=== PATIENT | female | born 1940 | race African-American/Black ===

== ENCOUNTER 2019-09-04 13:02 | Inpatient (IN) ==
[2019-09-04] MEDS ORDERED: SODIUM CHLORIDE 0.9% 500 ML IV STA ×2 (13:51→15:28)
[2019-09-04 14:03] LABS: Basophils % 0.2 % (0.0-0.8); Hematocrit 32.4 VOL% (35.7-47.0); Hemoglobin 10.1 GM/DL (12.0-16.0); Immature Granulocytes % 1.1 %; Immature Granulocytes Absolute 0.14 #; Lymphocytes # 0.6 10*3/uL (1.4-4.0); Lymphocytes % 4.4 % (21.3-54.2); Mean Corpuscular HGB Conc 31.2 GM/DL (32-36); Mean Corpuscular Volume 102.2 FL (87-102); Mean Platelet Volume 11.7 FL (9.6-12.0); Monocytes % 10.6 % (1.7-12.7); Neutrophils % 83.7 % (38.7-73.9); Platelet Count 130 T/CUMM (130-400); Red Blood Count 3.17 MC/CUMM (3.8-5.5); Red Cell Distribution Width 14.7 % (9.3-17.3); White Blood Count 12.8 T/CUMM (4-12)
[2019-09-04 14:22] LABS: Albumin 2.2 G/DL (3.4-5.0); Bilirubin,Total 0.9 MG/DL (0.2-1.0); Calcium 9.1 MG/DL (8.5-10.1); Osmolality,Calculated 289.1 MOS/KG (273-304); Thyroid Stimulating Hormone 0.007 uIU/ml (0.358-3.74)
[2019-09-04 14:32] LABS: Apearance,Urine Turbid (Clear); Urine Color Yellow (Yellow); Urine Specific Gravity 1.005 (1.001-1.035)
[2019-09-04 14:33] LABS: Glucose,Urine (UA) Negative (Negative); Ketones,Urine 25 mg/dL (Negative); Protein,Urine 2+ MG/DL
[2019-09-04 14:34] LABS: Bilirubin,Urine Negative (Negative); Nitrite,Urine Negative (Negative)
[2019-09-04 14:35] LABS: Blood, Urine Trace mg/dL (Negative); RBC,Urine Rare /HPF (0-4); Squamous Epithelial Cell,Urine Many /HPF (0-10); Urine Urobilinogen < 2.0 EU/DL (0.2-1.0); WBC,Urine TNTC /HPF (0-6)
[2019-09-04 14:36] LABS: Bacteria,Urine Many /HPF (Few); Mucus,Urine Slight /LPF (Occasional); Sperm,Urine None Seen /HPF (Negative); Trichomonas,Urine None Seen /HPF (<1)
[2019-09-04] MEDS ORDERED: ALBUTEROL 1.25 MG/3 ML NEB RESP TX STA (14:54)
[2019-09-04] MEDS ORDERED: VANCOMYCIN INJ 1,000 MG in SODIUM CHLORIDE 0.9% 250 ML IV STA (14:55)
[2019-09-04] MEDS ORDERED: cefTRIAXone 1,000 MG in SODIUM CHLORIDE 0.9% 100 ML IV STA (14:56)
[2019-09-04 15:30] LABS: Band Neutrophils 1 % (0-10); Lymphocytes 8 % (20-55); Metamyelocytes 1 %; Segmented Neutrophils 81 % (50-85); Total Cells Counted 100
[2019-09-04 15:31] LABS: Anisocytosis 1+; Hypochromasia 2+; Macrocytosis 2+; Platelet Estimate Adequate
[2019-09-04 15:32] LABS: Polychromasia 1+
[2019-09-04 15:33] LABS: Spherocytes Few; Toxic Granulation 1+
[2019-09-04] MEDS ORDERED: ONDANSETRON 4 MG/2 ML VIAL IV PRN (15:35)
[2019-09-04] MEDS ORDERED: ACETAMINOPHEN 325 MG TABLET PO PRN (15:35)
[2019-09-04] MEDS ORDERED: ALBUTEROL 2.5 MG/3 ML NEB RESP TX PRN (15:35)
[2019-09-04] MEDS ORDERED: BISACODYL 5 MG TABLET PO PRN (15:35)
[2019-09-04] MEDS ORDERED: methylPREDNISolone SOD SUC 125 MG/2 ML VIAL IV STA (15:38)
[2019-09-04] MEDS ORDERED: PROPRANOLOL 1 MG/1 ML VIAL IV ONE (15:43)
[2019-09-04] MEDS ORDERED: AZITHROMYCIN INJ 500 MG in SODIUM CHLORIDE 0.9% 250 ML IV SCH (16:00)
[2019-09-04] MEDS ORDERED: cefTRIAXone 1,000 MG in SODIUM CHLORIDE 0.9% 100 ML IV SCH (16:00)
[2019-09-04 16:08] LABS: Free T4 (Free Thyroxine) 1.51 NG/DL (0.76-1.46)
[2019-09-04 16:11] LABS: PT Patient Result 179.3 SECS (9.6-12.2)
[2019-09-04 16:15] LABS: INR 16.9
[2019-09-04] MEDS ORDERED: PHYTONADIONE INJ 10 MG in SODIUM CHLORIDE 0.9% 50 ML IV ONE (16:27)
[2019-09-04] MEDS ORDERED: NOREPINEPHRINE 8 MG in SODIUM CHLORIDE 0.9% 242 ML IV PRN (18:18)
[2019-09-04] MEDS ORDERED: NOREPINEPHRINE 4 MG/4 ML VIAL IV ONE (18:20)
[2019-09-04] MEDS ORDERED: METOPROLOL TARTRATE 5 MG/5 ML VIAL IV ONE ×3 (18:22→20:06)
[2019-09-04] MEDS: FAMOTIDINE 20 MG/2 ML VIAL IV SCH (18:37)
[2019-09-04] MEDS: PIPERACILLIN/TAZOBACTAM 3,375 MG in SODIUM CHLORIDE 0.9% 100 ML IV SCH (18:39)
[2019-09-04] MEDS: methylPREDNISolone SOD SUC 125 MG/2 ML VIAL IV SCH ×2 (18:39→23:31)
[2019-09-04] MEDS: PROPRANOLOL 1 MG/1 ML VIAL IV SCH ×2 (19:28→23:31)
[2019-09-04] MEDS ORDERED: VERAPAMIL 5 MG/2 ML VIAL IV ONE (20:09)
[2019-09-04] MEDS ORDERED: SODIUM CHLORIDE 0.9% 1,000 ML IV PRN (20:28)
[2019-09-04] MEDS: propylthiouraciL 50 MG TABLET PO SCH (20:48)
[2019-09-04] MEDS ORDERED: METOPROLOL TARTRATE 25 MG TABLET PO SCH (21:00)
[2019-09-04] MEDS: VERAPAMIL 5 MG/2 ML VIAL IV PRN (23:00)
[2019-09-05] MEDS: PROPRANOLOL 1 MG/1 ML VIAL IV SCH ×7 (02:37→23:46)
[2019-09-05] MEDS: VERAPAMIL 5 MG/2 ML VIAL IV PRN ×2 (03:17→03:20)
[2019-09-05] MEDS: PIPERACILLIN/TAZOBACTAM 3,375 MG in SODIUM CHLORIDE 0.9% 100 ML IV SCH ×2 (04:54→17:05)
[2019-09-05 05:29] LABS: Basophils % 0.2 % (0.0-0.8); Hemoglobin 7.8 GM/DL (12.0-16.0); Immature Granulocytes % 0.8 %; Immature Granulocytes Absolute 0.08 #; Lymphocytes # 0.5 10*3/uL (1.4-4.0); Lymphocytes % 5.4 % (21.3-54.2); Mean Corpuscular HGB Conc 31.2 GM/DL (32-36); Mean Corpuscular Volume 101.2 FL (87-102); Mean Platelet Volume 11.8 FL (9.6-12.0); Monocytes % 5.8 % (1.7-12.7); Neutrophils % 87.8 % (38.7-73.9); Platelet Count 123 T/CUMM (130-400); Red Blood Count 2.47 MC/CUMM (3.8-5.5); White Blood Count 9.9 T/CUMM (4-12)
[2019-09-05 05:57] LABS: PT Patient Result 21.4 SECS (9.6-12.2)
[2019-09-05 06:08] LABS: Albumin 2.2 G/DL (3.4-5.0); Band Neutrophils 2 % (0-10); Bilirubin,Total 1.3 MG/DL (0.2-1.0); Hypochromasia 1+; Lymphocytes 6 % (20-55); Osmolality,Calculated 304.4 MOS/KG (273-304); Platelet Estimate Normal; Segmented Neutrophils 87 % (50-85); Total Cells Counted 100; Total Protein 6.4 G/DL (6.4-8.3)
[2019-09-05 06:29] LABS: Folate 19.7 NG/ML (5.4-24.0); Vitamin B12 > 2000 PG/ML (211-911)
[2019-09-05] MEDS ORDERED: DILTIAZEM 50 MG/10 ML VIAL IV ONE (06:45)
[2019-09-05 07:11] LABS: Hepatitis B Core IgM Quant < 0.05 Index; Hepatitis B Surface Ag Quant < 0.10 Index; Hepatitis B Surface Ag Result Negative (Negative); Hepatitis C Virus Ab Quant 0.15 Index; Hepatitis C Virus Ab Result Negative (Negative)
[2019-09-05] MEDS: dilTIAZem Drip 125 MG/125 ML PREMIX IV SCH (08:32)
[2019-09-05] MEDS ORDERED: EPOETIN ALFA 2,000 UNIT/1 ML VIAL IV PRN (10:29)
[2019-09-05] MEDS ORDERED: VANCOMYCIN INJ 500 MG in SODIUM CHLORIDE 0.9% 100 ML IV PRN (10:55)
[2019-09-05] MEDS: propylthiouraciL 50 MG TABLET PO SCH ×3 (11:21→20:34)
[2019-09-05] MEDS: ATORVASTATIN 40 MG TABLET PO SCH (11:21)
[2019-09-05] MEDS: methylPREDNISolone SOD SUC 125 MG/2 ML VIAL IV SCH ×3 (11:21→23:54)
[2019-09-05] MEDS: PANTOPRAZOLE 40 MG TABLET PO SCH (11:21)
[2019-09-05] MEDS: METOPROLOL TARTRATE 50 MG TABLET PO SCH ×2 (11:21→21:46)
[2019-09-05] MEDS ORDERED: VANCOMYCIN INJ 1,500 MG in SODIUM CHLORIDE 0.9% 500 ML IV ONE (14:00)
[2019-09-05] MEDS: FAMOTIDINE 20 MG/2 ML VIAL IV SCH (16:02)
[2019-09-05] MEDS: OXACILLIN 2,000 MG in SODIUM CHLORIDE 0.9% 100 ML IV SCH ×3 (16:02→23:54)
[2019-09-05] MEDS: WARFARIN 5 MG TABLET PO SCH (19:00)
[2019-09-06] MEDS: PROPRANOLOL 1 MG/1 ML VIAL IV SCH ×2 (03:27→08:00)
[2019-09-06] MEDS: OXACILLIN 2,000 MG in SODIUM CHLORIDE 0.9% 100 ML IV SCH ×5 (03:44→22:02)
[2019-09-06] MEDS: PIPERACILLIN/TAZOBACTAM 3,375 MG in SODIUM CHLORIDE 0.9% 100 ML IV SCH (03:44)
[2019-09-06 04:55] LABS: Basophils % 0.2 % (0.0-0.8); Hematocrit 23.8 VOL% (35.7-47.0); Hemoglobin 7.8 GM/DL (12.0-16.0); Immature Granulocytes % 1.4 %; Immature Granulocytes Absolute 0.14 #; Lymphocytes # 0.5 10*3/uL (1.4-4.0); Lymphocytes % 4.6 % (21.3-54.2); Mean Corpuscular HGB Conc 32.8 GM/DL (32-36); Mean Corpuscular Volume 97.5 FL (87-102); Mean Platelet Volume 11.8 FL (9.6-12.0); Monocytes % 4.9 % (1.7-12.7); Neutrophils % 88.9 % (38.7-73.9); Platelet Count 123 T/CUMM (130-400); Red Blood Count 2.44 MC/CUMM (3.8-5.5); White Blood Count 9.8 T/CUMM (4-12)
[2019-09-06 04:59] LABS: INR 1.5; PT Patient Result 16.3 SECS (9.6-12.2)
[2019-09-06 05:31] LABS: Lymphocytes 3 % (20-55); Segmented Neutrophils 93 % (50-85); Total Cells Counted 100
[2019-09-06 05:32] LABS: Hypochromasia 1+; Platelet Estimate Adequate; Reactive Lymphocytes Few; Target Cells Few
[2019-09-06 05:36] LABS: Calcium 8.3 MG/DL (8.5-10.1); Osmolality,Calculated 299.4 MOS/KG (273-304)
[2019-09-06] MEDS: dilTIAZem Drip 125 MG/125 ML PREMIX IV SCH ×2 (07:46→21:36)
[2019-09-06] MEDS: METOPROLOL TARTRATE 50 MG TABLET PO SCH (08:00)
[2019-09-06] MEDS: methylPREDNISolone SOD SUC 125 MG/2 ML VIAL IV SCH (08:50)
[2019-09-06] MEDS: PANTOPRAZOLE 40 MG TABLET PO SCH (08:55)
[2019-09-06] MEDS: propylthiouraciL 50 MG TABLET PO SCH ×3 (08:55→23:02)
[2019-09-06] MEDS: ATORVASTATIN 40 MG TABLET PO SCH (08:55)
[2019-09-06 12:08] LABS: Thyroglob. AB < 1.8 IU/mL (<4.0)
[2019-09-06] MEDS: FAMOTIDINE 20 MG/2 ML VIAL IV SCH (16:05)
[2019-09-06] MEDS ORDERED: SODIUM CHLORIDE 0.9% 1,000 ML IV PRN (17:05)
[2019-09-06] MEDS: WARFARIN 5 MG TABLET PO SCH (18:05)
[2019-09-06] MEDS ORDERED: CEFUROXIME 500 MG TABLET PO SCH (21:00)
[2019-09-06] MEDS: VERAPAMIL 5 MG/2 ML VIAL IV PRN (22:05)
[2019-09-07] MEDS: OXACILLIN 2,000 MG in SODIUM CHLORIDE 0.9% 100 ML IV SCH ×7 (01:07→23:24)
[2019-09-07 05:24] LABS: Basophils % 0.3 % (0.0-0.8); Hematocrit 32.5 VOL% (35.7-47.0); Hemoglobin 11.1 GM/DL (12.0-16.0); Immature Granulocytes % 3.7 %; Lymphocytes # 0.6 10*3/uL (1.4-4.0); Lymphocytes % 4.1 % (21.3-54.2); Mean Corpuscular HGB Conc 34.2 GM/DL (32-36); Mean Corpuscular Volume 91.8 FL (87-102); Monocytes % 5.2 % (1.7-12.7); Neutrophils % 86.7 % (38.7-73.9); Platelet Count 142 T/CUMM (130-400); Red Blood Count 3.54 MC/CUMM (3.8-5.5); Red Cell Distribution Width 15.8 % (9.3-17.3); White Blood Count 13.4 T/CUMM (4-12)
[2019-09-07 06:11] LABS: Band Neutrophils 3 % (0-10); Lymphocytes 6 % (20-55); Metamyelocytes 1 %; Segmented Neutrophils 87 % (50-85); Total Cells Counted 100
[2019-09-07 06:12] LABS: Giant Platelets Few; Platelet Estimate Adequate
[2019-09-07] MEDS: dilTIAZem Drip 125 MG/125 ML PREMIX IV SCH (07:00)
[2019-09-07 07:23] LABS: PT Patient Result 82.2 SECS (9.6-12.2)
[2019-09-07 07:24] LABS: INR 7.7
[2019-09-07 08:28] LABS: Hematocrit 33.1 VOL% (35.7-47.0); Hemoglobin 11.4 GM/DL (12.0-16.0)
[2019-09-07] MEDS: PANTOPRAZOLE 40 MG TABLET PO SCH (08:45)
[2019-09-07] MEDS: ATORVASTATIN 40 MG TABLET PO SCH (08:45)
[2019-09-07] MEDS: propylthiouraciL 50 MG TABLET PO SCH ×3 (08:45→23:25)
[2019-09-07] MEDS ORDERED: CEFUROXIME 500 MG TABLET PO SCH (09:00)
[2019-09-07] MEDS: cefTRIAXone 1,000 MG in SYRINGE 1 EACH IV SCH (10:35)
[2019-09-07] MEDS: AZITHROMYCIN INJ 500 MG in SODIUM CHLORIDE 0.9% 250 ML IV SCH (11:15)
[2019-09-07] MEDS: FAMOTIDINE 20 MG/2 ML VIAL IV SCH (17:00)
[2019-09-07] MEDS: SEVELAMER CARBONATE 800 MG TABLET PO SCH (18:35)
[2019-09-07] MEDS: MULTIVITAMIN (BEROCCA) TABLET PO SCH (18:35)
[2019-09-08] MEDS: OXACILLIN 2,000 MG in SODIUM CHLORIDE 0.9% 100 ML IV SCH ×5 (04:59→21:36)
[2019-09-08] MEDS: dilTIAZem Drip 125 MG/125 ML PREMIX IV SCH (06:32)
[2019-09-08] MEDS: ATORVASTATIN 40 MG TABLET PO SCH (09:05)
[2019-09-08] MEDS: MULTIVITAMIN (BEROCCA) TABLET PO SCH (09:05)
[2019-09-08] MEDS: SEVELAMER CARBONATE 800 MG TABLET PO SCH ×3 (09:05→16:30)
[2019-09-08] MEDS: propylthiouraciL 50 MG TABLET PO SCH ×3 (09:05→21:38)
[2019-09-08] MEDS: PANTOPRAZOLE 40 MG TABLET PO SCH (09:05)
[2019-09-08] MEDS: cefTRIAXone 1,000 MG in SYRINGE 1 EACH IV SCH (09:11)
[2019-09-08 09:29] LABS: PT Patient Result 127.8 SECS (9.6-12.2)
[2019-09-08 09:40] LABS: Albumin 1.9 G/DL (3.4-5.0); Bilirubin,Total 0.5 MG/DL (0.2-1.0); Osmolality,Calculated 299.5 MOS/KG (273-304); Total Protein 6.2 G/DL (6.4-8.3)
[2019-09-08] MEDS: AZITHROMYCIN INJ 500 MG in SODIUM CHLORIDE 0.9% 250 ML IV SCH (09:51)
[2019-09-08] MEDS ORDERED: PHYTONADIONE 5 MG/5 ML ORAL.SYR PO ONE (11:00)
[2019-09-09] MEDS: OXACILLIN 2,000 MG in SODIUM CHLORIDE 0.9% 100 ML IV SCH ×4 (00:05→12:06)
[2019-09-09 05:48] LABS: Basophils # 0.1 10*3/uL (0.0-0.2); Basophils % 0.5 % (0.0-0.8); Eosinophils % 0.2 % (0.00-10.9); Hematocrit 30.2 VOL% (35.7-47.0); Hemoglobin 10.5 GM/DL (12.0-16.0); Immature Granulocytes % 7.4 %; Immature Granulocytes Absolute 0.99 #; Lymphocytes # 0.9 10*3/uL (1.4-4.0); Lymphocytes % 6.9 % (21.3-54.2); Mean Corpuscular HGB Conc 34.8 GM/DL (32-36); Monocytes % 3.2 % (1.7-12.7); NRBC # 0.04 10*3/uL; Neutrophils % 81.8 % (38.7-73.9); Platelet Count 144 T/CUMM (130-400); Red Blood Count 3.32 MC/CUMM (3.8-5.5); Red Cell Distribution Width 15.9 % (9.3-17.3); White Blood Count 13.3 T/CUMM (4-12)
[2019-09-09 06:09] LABS: INR 4.6
[2019-09-09 06:12] LABS: Lymphocytes 11 % (20-55); Pappenheimer Bodies Few; Platelet Estimate Decreased; Segmented Neutrophils 85 % (50-85); Total Cells Counted 100
[2019-09-09 06:16] LABS: Calcium 8.5 MG/DL (8.5-10.1); Osmolality,Calculated 299.5 MOS/KG (273-304)
[2019-09-09 06:21] LABS: PT Patient Result 49.5 SECS (9.6-12.2)
[2019-09-09] MEDS: dilTIAZem Drip 125 MG/125 ML PREMIX IV SCH (08:39)
[2019-09-09] MEDS: propylthiouraciL 50 MG TABLET PO SCH ×3 (08:55→21:31)
[2019-09-09] MEDS: SEVELAMER CARBONATE 800 MG TABLET PO SCH ×3 (08:55→16:53)
[2019-09-09] MEDS: PANTOPRAZOLE 40 MG TABLET PO SCH (08:55)
[2019-09-09] MEDS: ATORVASTATIN 40 MG TABLET PO SCH (08:55)
[2019-09-09] MEDS: AZITHROMYCIN INJ 500 MG in SODIUM CHLORIDE 0.9% 250 ML IV SCH (09:07)
[2019-09-09] MEDS: MULTIVITAMIN (BEROCCA) TABLET PO SCH (09:24)
[2019-09-09] MEDS: cefTRIAXone 1,000 MG in SYRINGE 1 EACH IV SCH (09:43)
[2019-09-09] MEDS: PIPERACILLIN/TAZOBACTAM 3,375 MG in SODIUM CHLORIDE 0.9% 100 ML IV SCH (12:48)
[2019-09-09] MEDS ORDERED: VANCOMYCIN INJ 500 MG in SODIUM CHLORIDE 0.9% 100 ML IV PRN (13:00)
[2019-09-09] MEDS ORDERED: VANCOMYCIN INJ 1,500 MG in SODIUM CHLORIDE 0.9% 500 ML IV ONE (16:00)
[2019-09-10] MEDS: PIPERACILLIN/TAZOBACTAM 3,375 MG in SODIUM CHLORIDE 0.9% 100 ML IV SCH ×2 (02:02→14:36)
[2019-09-10 05:32] LABS: Basophils # 0.1 10*3/uL (0.0-0.2); Basophils % 0.4 % (0.0-0.8); Eosinophils # 0.1 10*3/uL (0.0-0.87); Eosinophils % 0.6 % (0.00-10.9); Hematocrit 28.6 VOL% (35.7-47.0); Hemoglobin 9.9 GM/DL (12.0-16.0); Immature Granulocytes % 6.7 %; Lymphocytes # 1.1 10*3/uL (1.4-4.0); Lymphocytes % 6.4 % (21.3-54.2); Mean Corpuscular HGB Conc 34.6 GM/DL (32-36); Mean Corpuscular Volume 90.5 FL (87-102); Mean Platelet Volume 11.6 FL (9.6-12.0); Monocytes % 3.2 % (1.7-12.7); NRBC # 0.03 10*3/uL; Neutrophils % 82.7 % (38.7-73.9); Platelet Count 172 T/CUMM (130-400); Red Blood Count 3.16 MC/CUMM (3.8-5.5); Red Cell Distribution Width 16.2 % (9.3-17.3); White Blood Count 16.5 T/CUMM (4-12)
[2019-09-10 05:38] LABS: INR 2.9
[2019-09-10 05:43] LABS: PT Patient Result 31.1 SECS (9.6-12.2)
[2019-09-10 05:56] LABS: Calcium 8.7 MG/DL (8.5-10.1); Osmolality,Calculated 296.8 MOS/KG (273-304)
[2019-09-10 06:13] LABS: Hypochromasia Slight; Lymphocytes 6 % (20-55); Platelet Estimate Normal; Polychromasia Few; Segmented Neutrophils 90 % (50-85); Total Cells Counted 100
[2019-09-10] MEDS: dilTIAZem Drip 125 MG/125 ML PREMIX IV SCH (06:34)
[2019-09-10] MEDS: SEVELAMER CARBONATE 800 MG TABLET PO SCH ×3 (08:51→17:29)
[2019-09-10] MEDS: VERAPAMIL 5 MG/2 ML VIAL IV PRN (09:24)
[2019-09-10] MEDS ORDERED: ETOMIDATE 40 MG/20 ML VIAL IV ONE (11:37)
[2019-09-10] MEDS ORDERED: propofoL 200 MG/20 ML VIAL IV ONE (11:37)
[2019-09-10] MEDS ORDERED: SODIUM CHLORIDE 0.9% 1,000 ML IV SCH (13:30)
[2019-09-10] MEDS: ATORVASTATIN 40 MG TABLET PO SCH (13:50)
[2019-09-10] MEDS: PANTOPRAZOLE 40 MG TABLET PO SCH (13:50)
[2019-09-10] MEDS: propylthiouraciL 50 MG TABLET PO SCH ×3 (13:50→21:47)
[2019-09-10] MEDS: MULTIVITAMIN (BEROCCA) TABLET PO SCH (13:50)
[2019-09-10] MEDS: VERAPAMIL 80 MG TABLET PO SCH ×3 (14:36→21:48)
[2019-09-10] MEDS ORDERED: LIDOCAINE 2% 20 ML VIAL ONE (15:28)
[2019-09-10] MEDS ORDERED: LIDOCAINE 2% 20 ML VIAL MISC INJ ONE (15:46)
[2019-09-10] MEDS ORDERED: VANCOMYCIN INJ 500 MG in SODIUM CHLORIDE 0.9% 100 ML IV ONE (17:00)
[2019-09-11] MEDS: PIPERACILLIN/TAZOBACTAM 3,375 MG in SODIUM CHLORIDE 0.9% 100 ML IV SCH ×2 (01:09→13:50)
[2019-09-11 05:39] LABS: Basophils % 0.3 % (0.0-0.8); Eosinophils # 0.1 10*3/uL (0.0-0.87); Eosinophils % 0.4 % (0.00-10.9); Hematocrit 25.2 VOL% (35.7-47.0); Hemoglobin 8.4 GM/DL (12.0-16.0); Immature Granulocytes % 6.6 %; Immature Granulocytes Absolute 0.78 #; Lymphocytes % 8.2 % (21.3-54.2); Mean Corpuscular HGB Conc 33.3 GM/DL (32-36); Mean Corpuscular Volume 94.7 FL (87-102); Mean Platelet Volume 10.8 FL (9.6-12.0); Monocytes % 4.2 % (1.7-12.7); NRBC # 0.04 10*3/uL; Neutrophils % 80.3 % (38.7-73.9); Platelet Count 153 T/CUMM (130-400); Red Blood Count 2.66 MC/CUMM (3.8-5.5); Red Cell Distribution Width 16.4 % (9.3-17.3); White Blood Count 11.8 T/CUMM (4-12)
[2019-09-11 06:06] LABS: Calcium 8.5 MG/DL (8.5-10.1); Osmolality,Calculated 291.1 MOS/KG (273-304)
[2019-09-11 06:21] LABS: Anisocytosis 2+; Band Neutrophils 6 % (0-10); Eosinophils 1 % (0-10); Lymphocytes 14 % (20-55); Nucleated Red Blood Cells 1 (0-5); Platelet Estimate Normal; Segmented Neutrophils 77 % (50-85); Total Cells Counted 100
[2019-09-11] MEDS: dilTIAZem Drip 125 MG/125 ML PREMIX IV SCH (06:21)
[2019-09-11 06:22] LABS: Macrocytosis 1+; Polychromasia Slight; Target Cells 2+
[2019-09-11 06:23] LABS: INR 1.4; PT Patient Result 15.1 SECS (9.6-12.2)
[2019-09-11] MEDS: ATORVASTATIN 40 MG TABLET PO SCH (09:06)
[2019-09-11] MEDS: SEVELAMER CARBONATE 800 MG TABLET PO SCH ×3 (09:06→17:22)
[2019-09-11] MEDS: PANTOPRAZOLE 40 MG TABLET PO SCH (09:06)
[2019-09-11] MEDS: VERAPAMIL 80 MG TABLET PO SCH ×3 (09:06→21:19)
[2019-09-11] MEDS: propylthiouraciL 50 MG TABLET PO SCH ×3 (09:06→21:19)
[2019-09-11] MEDS: MULTIVITAMIN (BEROCCA) TABLET PO SCH (09:06)
[2019-09-11] MEDS: ENOXAPARIN 80 MG/0.8 ML SYRINGE SUBCUT SCH (12:05)
[2019-09-12] MEDS: PIPERACILLIN/TAZOBACTAM 3,375 MG in SODIUM CHLORIDE 0.9% 100 ML IV SCH ×2 (01:45→13:46)
[2019-09-12 04:58] LABS: Basophils % 0.2 % (0.0-0.8); Eosinophils # 0.1 10*3/uL (0.0-0.87); Eosinophils % 0.7 % (0.00-10.9); Hematocrit 25.4 VOL% (35.7-47.0); Hemoglobin 8.2 GM/DL (12.0-16.0); Immature Granulocytes % 3.8 %; Immature Granulocytes Absolute 0.45 #; Lymphocytes # 0.7 10*3/uL (1.4-4.0); Lymphocytes % 6.1 % (21.3-54.2); Mean Corpuscular HGB Conc 32.3 GM/DL (32-36); Mean Corpuscular Volume 98.1 FL (87-102); Mean Platelet Volume 11.1 FL (9.6-12.0); Monocytes % 4.5 % (1.7-12.7); NRBC # 0.04 10*3/uL; Neutrophils % 84.7 % (38.7-73.9); Platelet Count 156 T/CUMM (130-400); Red Blood Count 2.59 MC/CUMM (3.8-5.5); Red Cell Distribution Width 16.7 % (9.3-17.3); White Blood Count 11.9 T/CUMM (4-12)
[2019-09-12 05:27] LABS: Calcium 8.5 MG/DL (8.5-10.1); Osmolality,Calculated 295.8 MOS/KG (273-304)
[2019-09-12] MEDS: dilTIAZem Drip 125 MG/125 ML PREMIX IV SCH (06:06)
[2019-09-12] MEDS ORDERED: HEPARIN 5,000 UNIT/1 ML VIAL ONE (06:15)
[2019-09-12] MEDS ORDERED: LIDOCAINE 1%/EPI INJ 20 ML VIAL ONE (06:29)
[2019-09-12] MEDS ORDERED: BUPIVACAINE 0.25% /EPI 10 ML VIAL ONE ×2 (06:29→07:21)
[2019-09-12] MEDS ORDERED: DEXMEDETOMIDINE 200 MCG/2 ML VIAL IV ONE (07:13)
[2019-09-12] MEDS ORDERED: SODIUM CHLORIDE 0.9% 250 ML IV SCH (07:30)
[2019-09-12] MEDS ORDERED: TISSUE ADHESIVE 1 EACH APPLICATOR TOP ONE (07:57)
[2019-09-12] MEDS: SEVELAMER CARBONATE 800 MG TABLET PO SCH ×3 (08:00→17:12)
[2019-09-12] MEDS: ENOXAPARIN 80 MG/0.8 ML SYRINGE SUBCUT SCH (13:46)
[2019-09-12] MEDS: ATORVASTATIN 40 MG TABLET PO SCH (13:53)
[2019-09-12] MEDS: PANTOPRAZOLE 40 MG TABLET PO SCH (13:53)
[2019-09-12] MEDS: propylthiouraciL 50 MG TABLET PO SCH ×3 (13:53→21:45)
[2019-09-12] MEDS: VERAPAMIL 80 MG TABLET PO SCH ×3 (13:54→21:44)
[2019-09-12] MEDS: MULTIVITAMIN (BEROCCA) TABLET PO SCH (13:54)
[2019-09-12] MEDS ORDERED: HEPARIN 10,000 UNIT/10 ML VIAL IV SCH (15:00)
[2019-09-12] MEDS: WARFARIN 2 MG TABLET PO SCH (17:13)
[2019-09-13] MEDS: PIPERACILLIN/TAZOBACTAM 3,375 MG in SODIUM CHLORIDE 0.9% 100 ML IV SCH ×2 (02:20→13:28)
[2019-09-13 04:44] LABS: Basophils % 0.2 % (0.0-0.8); Eosinophils # 0.1 10*3/uL (0.0-0.87); Eosinophils % 0.6 % (0.00-10.9); Hematocrit 24.8 VOL% (35.7-47.0); Hemoglobin 7.9 GM/DL (12.0-16.0); Immature Granulocytes % 2.8 %; Immature Granulocytes Absolute 0.32 #; Lymphocytes # 0.9 10*3/uL (1.4-4.0); Mean Corpuscular HGB Conc 31.9 GM/DL (32-36); Mean Corpuscular Volume 98.8 FL (87-102); Mean Platelet Volume 11.1 FL (9.6-12.0); Monocytes % 5.6 % (1.7-12.7); NRBC # 0.05 10*3/uL; Neutrophils % 82.8 % (38.7-73.9); Platelet Count 148 T/CUMM (130-400); Red Blood Count 2.51 MC/CUMM (3.8-5.5); White Blood Count 11.6 T/CUMM (4-12)
[2019-09-13 05:24] LABS: Calcium 8.7 MG/DL (8.5-10.1); Osmolality,Calculated 277.7 MOS/KG (273-304)
[2019-09-13] MEDS: dilTIAZem Drip 125 MG/125 ML PREMIX IV SCH (08:16)
[2019-09-13] MEDS: propylthiouraciL 50 MG TABLET PO SCH ×3 (08:16→21:41)
[2019-09-13] MEDS: SEVELAMER CARBONATE 800 MG TABLET PO SCH ×3 (08:17→17:31)
[2019-09-13] MEDS: MULTIVITAMIN (BEROCCA) TABLET PO SCH (08:17)
[2019-09-13] MEDS: PANTOPRAZOLE 40 MG TABLET PO SCH (08:17)
[2019-09-13] MEDS: carvediloL 12.5 MG TABLET PO SCH ×2 (08:18→21:41)
[2019-09-13] MEDS: ATORVASTATIN 40 MG TABLET PO SCH (08:18)
[2019-09-13] MEDS: VERAPAMIL 80 MG TABLET PO SCH ×3 (08:18→21:42)
[2019-09-13] MEDS: WARFARIN 2 MG TABLET PO SCH (17:32)
[2019-09-14] MEDS: PIPERACILLIN/TAZOBACTAM 3,375 MG in SODIUM CHLORIDE 0.9% 100 ML IV SCH ×2 (01:30→15:58)
[2019-09-14 05:35] LABS: INR 1.5; PT Patient Result 16.1 SECS (9.6-12.2)
[2019-09-14 05:38] LABS: Basophils % 0.2 % (0.0-0.8); Eosinophils # 0.1 10*3/uL (0.0-0.87); Eosinophils % 1.1 % (0.00-10.9); Hematocrit 23.6 VOL% (35.7-47.0); Hemoglobin 7.5 GM/DL (12.0-16.0); Immature Granulocytes Absolute 0.19 #; Lymphocytes % 9.9 % (21.3-54.2); Mean Corpuscular HGB Conc 31.8 GM/DL (32-36); Mean Corpuscular Volume 98.7 FL (87-102); Mean Platelet Volume 12.1 FL (9.6-12.0); Monocytes % 6.3 % (1.7-12.7); NRBC # 0.07 10*3/uL; Neutrophils % 80.5 % (38.7-73.9); Platelet Count 129 T/CUMM (130-400); Red Blood Count 2.39 MC/CUMM (3.8-5.5); Red Cell Distribution Width 16.9 % (9.3-17.3); White Blood Count 9.6 T/CUMM (4-12)
[2019-09-14 05:40] LABS: Calcium 8.6 MG/DL (8.5-10.1); Osmolality,Calculated 290.1 MOS/KG (273-304)
[2019-09-14] MEDS: dilTIAZem Drip 125 MG/125 ML PREMIX IV SCH (06:50)
[2019-09-14] MEDS: ATORVASTATIN 40 MG TABLET PO SCH (08:42)
[2019-09-14] MEDS: propylthiouraciL 50 MG TABLET PO SCH ×3 (08:42→21:55)
[2019-09-14] MEDS: SEVELAMER CARBONATE 800 MG TABLET PO SCH ×3 (08:42→17:15)
[2019-09-14] MEDS: VERAPAMIL 80 MG TABLET PO SCH ×3 (08:42→21:55)
[2019-09-14] MEDS: MULTIVITAMIN (BEROCCA) TABLET PO SCH (08:42)
[2019-09-14] MEDS: carvediloL 12.5 MG TABLET PO SCH ×2 (08:43→21:55)
[2019-09-14] MEDS: PANTOPRAZOLE 40 MG TABLET PO SCH (08:43)
[2019-09-14] MEDS: ENOXAPARIN 80 MG/0.8 ML SYRINGE SUBCUT SCH (10:49)
[2019-09-14] MEDS ORDERED: SODIUM CHLORIDE 0.9% 1,000 ML IV PRN (11:28)
[2019-09-14] MEDS: WARFARIN 2.5 MG TABLET PO SCH (17:40)
[2019-09-14] MEDS ORDERED: VANCOMYCIN INJ 500 MG in SODIUM CHLORIDE 0.9% 100 ML IV PRN (19:53)
[2019-09-14] MEDS ORDERED: VANCOMYCIN INJ 1,500 MG in SODIUM CHLORIDE 0.9% 500 ML IV ONE (20:00)
[2019-09-15] MEDS: PIPERACILLIN/TAZOBACTAM 3,375 MG in SODIUM CHLORIDE 0.9% 100 ML IV SCH ×2 (01:49→12:19)
[2019-09-15 05:14] LABS: INR 1.4; PT Patient Result 15.1 SECS (9.6-12.2)
[2019-09-15 08:09] LABS: Basophils # 0.1 10*3/uL (0.0-0.2); Basophils % 0.4 % (0.0-0.8); Eosinophils # 0.1 10*3/uL (0.0-0.87); Eosinophils % 0.7 % (0.00-10.9); Immature Granulocytes % 1.8 %; Immature Granulocytes Absolute 0.21 #; Lymphocytes % 8.8 % (21.3-54.2); Mean Corpuscular HGB Conc 32.2 GM/DL (32-36); Mean Corpuscular Volume 95.8 FL (87-102); Mean Platelet Volume 11.5 FL (9.6-12.0); Monocytes % 5.7 % (1.7-12.7); NRBC # 0.09 10*3/uL; Neutrophils % 82.6 % (38.7-73.9); Platelet Count 102 T/CUMM (130-400); Red Blood Count 3.34 MC/CUMM (3.8-5.5); Red Cell Distribution Width 17.7 % (9.3-17.3); White Blood Count 11.6 T/CUMM (4-12)
[2019-09-15 08:14] LABS: Hemoglobin 10.3 GM/DL (12.0-16.0)
[2019-09-15] MEDS: dilTIAZem Drip 125 MG/125 ML PREMIX IV SCH (09:44)
[2019-09-15] MEDS: MULTIVITAMIN (BEROCCA) TABLET PO SCH (09:45)
[2019-09-15] MEDS: propylthiouraciL 50 MG TABLET PO SCH ×3 (09:45→22:24)
[2019-09-15] MEDS: SEVELAMER CARBONATE 800 MG TABLET PO SCH ×3 (09:45→17:11)
[2019-09-15] MEDS: ATORVASTATIN 40 MG TABLET PO SCH (09:45)
[2019-09-15] MEDS: carvediloL 12.5 MG TABLET PO SCH ×2 (09:45→22:24)
[2019-09-15] MEDS: PANTOPRAZOLE 40 MG TABLET PO SCH (09:45)
[2019-09-15] MEDS: VERAPAMIL 80 MG TABLET PO SCH ×3 (09:46→22:24)
[2019-09-15] MEDS: ENOXAPARIN 80 MG/0.8 ML SYRINGE SUBCUT SCH (11:58)
[2019-09-15] MEDS ORDERED: WARFARIN 5 MG TABLET PO ONE (12:23)
[2019-09-15] MEDS: WARFARIN 2.5 MG TABLET PO SCH (17:11)
[2019-09-16] MEDS: PIPERACILLIN/TAZOBACTAM 3,375 MG in SODIUM CHLORIDE 0.9% 100 ML IV SCH ×2 (01:12→13:14)
[2019-09-16 05:00] LABS: PT Patient Result 21.4 SECS (9.6-12.2)
[2019-09-16] MEDS: dilTIAZem Drip 125 MG/125 ML PREMIX IV SCH (07:27)
[2019-09-16] MEDS: propylthiouraciL 50 MG TABLET PO SCH ×3 (09:26→21:54)
[2019-09-16] MEDS: carvediloL 12.5 MG TABLET PO SCH ×2 (09:27→21:54)
[2019-09-16] MEDS: PANTOPRAZOLE 40 MG TABLET PO SCH (09:27)
[2019-09-16] MEDS: VERAPAMIL 80 MG TABLET PO SCH ×3 (09:27→21:54)
[2019-09-16] MEDS: MULTIVITAMIN (BEROCCA) TABLET PO SCH (09:27)
[2019-09-16] MEDS: ATORVASTATIN 40 MG TABLET PO SCH (09:27)
[2019-09-16] MEDS: SEVELAMER CARBONATE 800 MG TABLET PO SCH ×3 (09:27→17:39)
[2019-09-16] MEDS: ENOXAPARIN 80 MG/0.8 ML SYRINGE SUBCUT SCH (10:55)
[2019-09-16] MEDS: WARFARIN 3 MG TABLET PO SCH ×2 (18:01→18:39)
[2019-09-17] MEDS: PIPERACILLIN/TAZOBACTAM 3,375 MG in SODIUM CHLORIDE 0.9% 100 ML IV SCH ×2 (01:31→14:28)
[2019-09-17 04:48] LABS: INR 2.9
[2019-09-17 04:51] LABS: PT Patient Result 31.2 SECS (9.6-12.2)
[2019-09-17 05:15] LABS: Calcium 8.3 MG/DL (8.5-10.1)
[2019-09-17 06:03] LABS: Basophils # 0.1 10*3/uL (0.0-0.2); Basophils % 0.7 % (0.0-0.8); Eosinophils # 0.1 10*3/uL (0.0-0.87); Eosinophils % 0.7 % (0.00-10.9); Hematocrit 28.3 VOL% (35.7-47.0); Immature Granulocytes % 0.8 %; Immature Granulocytes Absolute 0.08 #; Lymphocytes # 1.1 10*3/uL (1.4-4.0); Lymphocytes % 10.8 % (21.3-54.2); Mean Corpuscular HGB Conc 31.8 GM/DL (32-36); Mean Corpuscular Volume 97.6 FL (87-102); Mean Platelet Volume 12.3 FL (9.6-12.0); Monocytes % 5.8 % (1.7-12.7); NRBC # 0.03 10*3/uL; Neutrophils % 81.2 % (38.7-73.9); Platelet Count 77 T/CUMM (130-400); Red Cell Distribution Width 17.7 % (9.3-17.3); White Blood Count 9.9 T/CUMM (4-12)
[2019-09-17 06:20] LABS: Hypochromasia Slight
[2019-09-17 06:21] LABS: Macrocytosis 1+; Platelet Estimate Decreased; Polychromasia Slight
[2019-09-17] MEDS: carvediloL 12.5 MG TABLET PO SCH (09:15)
[2019-09-17] MEDS: PANTOPRAZOLE 40 MG TABLET PO SCH (09:15)
[2019-09-17] MEDS: ATORVASTATIN 40 MG TABLET PO SCH (09:15)
[2019-09-17] MEDS: propylthiouraciL 50 MG TABLET PO SCH ×2 (09:16→17:04)
[2019-09-17] MEDS: MULTIVITAMIN (BEROCCA) TABLET PO SCH (09:16)
[2019-09-17] MEDS: SEVELAMER CARBONATE 800 MG TABLET PO SCH ×3 (09:16→17:04)
[2019-09-17] MEDS: VERAPAMIL 80 MG TABLET PO SCH ×2 (09:16→17:04)
[2019-09-17] MEDS ORDERED: TISSUE ADHESIVE 1 EACH APPLICATOR TOP ONE (12:59)
[2019-09-17] MEDS ORDERED: LIDOCAINE 1%/EPI INJ 20 ML VIAL MISC INJ ONE ×2 (13:49→14:30)
[2019-09-17 16:02] VITALS: BP 138/81
== END 2019-09-17 17:34 | DRG 314 ==
LOC: N.ED 13:02 → SUATTDRO 15:35 → N.EDINP 15:35 → N.ICU 16:01 → N.TELES 09-07 20:05
PROVIDERS: ADMIT Internal Medicine Cardiovascular Disease; ATTEND Internal Medicine